=== PATIENT | male | born 1990 | race Caucasian/White ===

== ENCOUNTER 2019-07-26 19:13 | Emergency (ER) | payer MEDICAID ==
[~2019-07-26] VITALS: Ht 180.3 cm; Wt 99.8 kg
[2019-07-26 19:43] VITALS: BP_SYST 151
--- NOTE | 2019-07-26 19:43 | NUR ---
Pt to ER bed 07, to gown, accompanied by family member. Pt c/o of generalized and intermittent right sided abdominal pain that radiates to right groin x 3 weeks and progressively worsening. Pt states that he has been having more urges to urinate and afterwards pain becomes less. Denies N/V/D, denies urinary burning or hematuria.
[2019-07-26] MEDS ORDERED: ACETAMINOPHEN 500 MG TABLET PO ONE (20:15)
[2019-07-26 20:27] LABS: BILIRUBIN,URINE NEGATIVE (NEGATIVE); BLOOD, URINE NEGATIVE (NEGATIVE); CLARITY/URINE CLEAR (CLEAR); COLOR,URINE YELLOW (YELLOW); GLUCOSE,URINE NEGATIVE (NEGATIVE); KETONES,URINE NEGATIVE (NEGATIVE); LEUKOCYTE ESTERASE ,URINE NEGATIVE (NEGATIVE); NITRITE, URINE NEGATIVE (NEGATIVE); PH,URINE 6.5 (5.0-8.0); PROTEIN URINE NEGATIVE (NEGATIVE); UROBILINOGEN,URINE 0.2 (0.2-1.0)
[2019-07-26 20:41] LABS: BASOPHILS % (AUTO) 0.5 % (0.0-2.0); EOSINOPHILS # (AUTO) 0.1 K/uL (0.0-0.4); EOSINOPHILS % (AUTO) 1.9 % (0.0-4.0); HEMATOCRIT 40.7 % (36-54); HEMOGLOBIN 14.4 g/dL (14.0-18.0); LYMPHOCYTES # (AUTO) 2.5 K/uL (1.0-5.5); LYMPHOCYTES % (AUTO) 31.9 % (20.5-51.5); MEAN CORPUSCULAR HEMOGLOBIN 31 pg (27-31); MEAN CORPUSCULAR HGB CONC 35 % (32-36); MEAN CORPUSCULAR VOLUME 88 fL (79.0-98.0); MONOCYTES # (AUTO) 0.6 K/uL (0.0-1.0); MONOCYTES % (AUTO) 7.8 % (1.7-9.3); NEUTROPHILS # (AUTO) 4.5 K/uL (1.8-7.7); NEUTROPHILS % (AUTO) 57.9 % (40.0-70.0); PLATELET COUNT (AUTO) 275 K/uL (130-430); RED BLOOD CELL COUNT(AUTO) 4.64 MIL/uL (4.2-6.2); RED CELL DISTRIBUTION WIDTH 12.1 % (9.0-15.0); WHITE BLOOD COUNT (AUTO) 7.7 K/uL (4.8-10.8)
[2019-07-26 20:51] LABS: CALCIUM 8.7 mg/dL (8.4-11.0); CREATININE 1.07 mg/dL (0.55-1.30); POTASSIUM 3.6 mmol/L (3.5-5.1)
[2019-07-26 20:57] LABS: ALBUMIN 3.7 g/dL (3.4-4.8); TOTAL BILIRUBIN 0.3 mg/dL (0.0-1.0)
--- NOTE | 2019-07-26 21:11 | NUR ---
Medication administered. Pt tolerated well. No adverse reactions noted. Pt ambulated to bathroom in non slip shoes with steady gait.
--- NOTE | 2019-07-26 21:30 | NUR ---
Dr. Chaudhary at bedside.
--- NOTE | 2019-07-26 23:00 | NUR ---
Pt verbalizes improvement in pain. No needs verbalized at this time.
[2019-07-27 00:08] VITALS: BP_SYST 135
--- NOTE | 2019-07-27 00:08 | NUR ---
Patient given written and verbal discharge instructions and verbalizes understanding. ER MD discussed with patient the results and treatment provided. Patient in stable condition. ID arm band removed. Rx of [place] given. Patient educated on pain management and to follow up with PMD. Pain Scale 0/10 . Opportunity for questions provided and answered. Medication side effect fact sheet provided.
== END 2019-07-27 00:08 | disposition home or self-care (01) ==
LOC: SED 19:13
DX: R10.31 Right lower quadrant pain (principal); J45.909 Unspecified asthma, uncomplicated; Z86.19 Personal history of other infectious and parasitic diseases
CPT/HCPCS: 36415; 80053; 81003; 82150-TC; 83690-TC; 85025; 85610-TC; 99284

== ENCOUNTER 2020-04-22 21:13 | Emergency (ER) | payer MEDICAID, OTHER ==
[~2020-04-22] VITALS: Ht 180.3 cm; Wt 90.7 kg
[2020-04-22 21:15] VITALS: BP_SYST 142
[2020-04-22] MEDS ORDERED: LIDOCAINE 1% 10 MG/ML, 20 ML MDV INJ ONE ×2 (22:45→23:30)
[2020-04-22] MEDS ORDERED: LIDOCAINE 1%, 20 ML MDV 20 ML ONE (22:57)
[2020-04-22] MEDS ORDERED: CEPHALEXIN 500 MG CAPSULE PO ONE (23:30)
[2020-04-22] MEDS ORDERED: DIPH-TET-PERTUS Vaccine 0.5 ML VIAL (ADACEL) I.M. ONE (23:30)
[2020-04-22] MEDS ORDERED: BACITRACIN 1 GM OINT TP ONE ×2 (23:30→23:47)
[2020-04-23 00:06] VITALS: BP_SYST 128
== END 2020-04-23 00:06 | disposition home or self-care (01) ==
LOC: SED 21:13
DX: S71.111A Laceration without foreign body, right thigh, initial encounter (principal); S61.412A Laceration without foreign body of left hand, initial encounter; J45.909 Unspecified asthma, uncomplicated; F11.90 Opioid use, unspecified, uncomplicated; Z86.19 Personal history of other infectious and parasitic diseases; X58.XXXA Exposure to other specified factors, initial encounter; Y93.39 Activity, other involving climbing, rappelling and jumping off; Y92.89 Other specified places as the place of occurrence of the external cause; Y99.8 Other external cause status
CPT/HCPCS: 12002; 73130; 90471; 90715; 99283; J2001

== ENCOUNTER 2023-12-08 00:59 | Emergency (ER) | payer OTHER ==
[~2023-12-08] VITALS: Ht 180.3 cm; Wt 90.7 kg
[2023-12-08 01:05] VITALS: BP_SYST 139; PULSE 85; RESP 20; TEMP 98; O2SAT 97
[2023-12-08] MEDS ORDERED: IBUP-1969 PO (01:13)
[2023-12-08] MEDS ORDERED: ACET-2634 PO (01:13)
[2023-12-08] MEDS: IBUPROFEN 600 MG TABLET PO ONE (01:22)
[2023-12-08 01:53] VITALS: BP_SYST 137; PULSE 84; RESP 18; TEMP 97.9; O2SAT 100
== END 2023-12-08 01:53 | disposition home or self-care (01) ==
LOC: SED 00:59
DX: S40.011A Contusion of right shoulder, initial encounter (principal); J45.909 Unspecified asthma, uncomplicated; Z79.899 Other long term (current) drug therapy; W01.0XXA Fall on same level from slipping, tripping and stumbling without subsequent striking against object, initial encounter; Y93.89 Activity, other specified; Y92.89 Other specified places as the place of occurrence of the external cause; Y99.8 Other external cause status
CPT/HCPCS: 99282